=== PATIENT | male | born 1990 | race Caucasian/White ===

== ENCOUNTER 2020-10-30 07:25 | Day surgery (SDC) | payer BC ==
[~2020-10-30 07:25] MED LIST: Lidocaine 2% 5 ML SDV ONE; Midazolam 1 MG/ML 2 ML SDV ONE; Propofol 200 MG/20 ML SDV ONE; fentaNYL 100 MCG/2 ML SDV ONE
--- NOTE | 2020-10-30 07:59 | PCM.PREANE ---
Preanesthetic Assessment - Anesthesia/Transfusion/Family Hx Anesthesia History: Prior Anesthesia Without Reaction Family History of Anesthesia Reaction: No Transfusion History: No Prior Transfusion(s) Intubation History: Unknown - Review of Systems General: No Symptoms Pulmonary: No Symptoms Cardiovascular: No Symptoms Gastrointestinal: No Symptoms Neurological: No Symptoms Other: Reports: None - Physical Assessment Height: 6 ft 2 in Weight: 66.678 kg ASA Class: 2 Mental Status: Alert & Oriented x3 Airway Class: Mallampati = 2 Dentition: Reports: Normal Dentition Thyro-Mental Finger Breadths: 3 Mouth Opening Finger Breadths: 2 (small mouth) ROM/Head Extension: Full Lungs: Clear to Auscultation, Normal Respiratory Effort Cardiovascular: Regular Rate, Regular Rhythm - Allergies Allergies/Adverse Reactions: Allergies Allergy/AdvReac Type Severity Reaction Status Date / Time Penicillins Allergy Cannot Verified 10/26/20 08:26 Remember - Blood Blood Available: No - Anesthesia Plan Pre-Op Medication Ordered: None - Acknowledgements Anesthesia Type Planned: MAC Pt an Appropriate Candidate for the Planned Anesthesia: Yes Alternatives and Risks of Anesthesia Discussed w Pt/Guardian: Yes Pt/Guardian Understands and Agrees with Anesthesia Plan: Yes PreAnesthesia Questionnaire HEENT History: Reports: None Cardiovascular History: Reports: None Respiratory History: Reports: None Gastrointestinal History: Reports: GERD Other Gastrointestinal History: intermittent RUQ pain Genitourinary History: Reports: None Musculoskeletal History: Reports: Back Pain, Chronic Neurological History: Reports: Migraines Psychiatric History: Reports: None Endocrine/Metabolic History: Reports: None Hematologic History: Reports: None Immunologic History: Reports: None Oncologic (Cancer) History: Reports: None Dermatologic History: Reports: None - Past Surgical History Head Surgeries/Procedures: Reports: None HEENT Surgical History: Reports: Tonsillectomy Cardiovascular Surgical History: Reports: None Respiratory Surgical History: Reports: None GI Surgical History: Reports: Colonoscopy, EGD Male Surgical History: Reports: None Endocrine Surgical History: Reports: None Neurological Surgical History: Reports: None Musculoskeletal Surgical History: Reports: None Oncologic Surgical History: Reports: None Dermatological Surgical History: Reports: None - SUBSTANCE USE Tobacco Use Status *Q: Current Every Day Tobacco User (1/2 ppd) Tobacco Use Within Last Twelve Months: Cigarettes - HOME MEDS Home Medications: Home Meds Omeprazole Magnesium [Prilosec Otc] 1 tab PO DAILY PRN 10/26/20 [History] Vitamin B Complex 1 tab PO DAILY 10/26/20 [History] - CURRENT (IN HOUSE) MEDS Current Meds: Current Medications Lactated Ringer's (Ringers, Lactated) 1,000 mls @ 125 mls/hr IV ASDIRECTED [facility] Discontinued Medications Fentanyl (Sublimaze) Confirm Administered Dose 100 mcg .ROUTE .STK-MED ONE Stop: 10/30/20 07:09 Lidocaine (Xylocaine-Mpf 2%) Confirm Administered Dose 5 ml .ROUTE .STK-MED ONE Stop: 10/30/20 07:08 Midazolam HCl (Versed 1 Mg/Ml) Confirm Administered Dose 2 mg .ROUTE .STK-MED ONE Stop: 10/30/20 07:09 Propofol (Diprivan 20 Ml) Confirm Administered Dose 200 mg .ROUTE .STK-MED ONE Stop: 10/30/20 07:09
[2020-10-30] MEDS ORDERED: Lactated Ringers 1,000 ML IV SCH ×2 (08:00→09:15)
--- NOTE | 2020-10-30 09:17 | PCM.OPNOTE ---
- General Post-Op/Procedure Note Date of Surgery/Procedure: 10/30/20 Operative Procedure(s): Esophagogastroduodenoscopy with antral biopsies Pre Op Diagnosis: Persistent epigastric pain. Post-Op Diagnosis: Mild to moderate chronic gastritis without ulceration. Anesthesia Technique: MAC (ASA II) Primary Surgeon: Campos Barber Condition: Good Free Text/Narrative:: DICTATION [id number] CPT CODE 45144
--- NOTE | 2020-10-30 09:46 | PCM.POSTAN ---
POST ANESTHESIA ASSESSMENT - MENTAL STATUS Mental Status: Alert, Oriented - VITAL SIGNS Vital Signs: Last Vital Signs Temp 36.2 C 10/30/20 07:32 Pulse 69 10/30/20 09:29 Resp 12 10/30/20 09:29 BP 102/62 10/30/20 09:29 Pulse Ox 95 10/30/20 09:29 - RESPIRATORY Respiratory Status: Respiratory Rate WNL, Airway Patent, O2 Saturation Stable - CARDIOVASCULAR CV Status: Pulse Rate WNL, Blood Pressure Stable - GASTROINTESTINAL GI Status: No Symptoms - PAIN Pain Score: 0 - POST OP HYDRATION Hydration Status: Adequate & Stable - OBSERVATIONS Free Text/Narrative:: No anesthesia problems
--- NOTE | 2020-10-30 09:47 | PCM48HPAN ---
Post Anesthesia Note - EVALUATION WITHIN 48HRS OF ANESTHETIC Vital Signs in Normal Range: Yes Patient Participated in Evaluation: Yes Respiratory Function Stable: Yes Airway Patent: Yes Cardiovascular Function Stable: Yes Hydration Status Stable: Yes Pain Control Satisfactory: Yes Nausea and Vomiting Control Satisfactory: Yes Mental Status Recovered: Yes Vital Signs: Last Vital Signs Temp 36.2 C 10/30/20 07:32 Pulse 69 10/30/20 09:29 Resp 12 10/30/20 09:29 BP 102/62 10/30/20 09:29 Pulse Ox 95 10/30/20 09:29 - COMMENTS/OBSERVATIONS Free Text/Narrative:: No anesthesia problems
--- NOTE | 2020-10-30 11:16 | OR ---
SURGEON: Campos Barber M.D. DATE OF PROCEDURE: 10/30/2020 OPERATION PERFORMED: Esophagogastroduodenoscopy with gastric biopsy. PRIMARY SURGEON: Campos Barber MD ANESTHESIA: MAC. ASA CLASSIFICATION: II. PREOPERATIVE DIAGNOSIS: Persistent epigastric pain. POSTOPERATIVE DIAGNOSIS: Moderate chronic gastritis without ulceration. DESCRIPTION OF PROCEDURE: The patient was taken to the endoscopy room and positioned on the endoscopy table in the supine position. Time-out was called for appropriate identification of patient and procedure. Monitored anesthesia care was provided. The bite block was placed between the patient's teeth. The gastroscope was inserted through the bite block into the oropharynx and advanced without difficulty through the esophagus and stomach into the duodenum where examination was now carried out in a retrograde fashion. The duodenum showed no acute inflammatory changes or ulcerations. The stomach did show mild-to- moderate chronic gastritis. No acute ulcerations were noted. Antral biopsies were obtained to look for the presence of Helicobacter pylori. The gastroscope was then retroflexed to visualize the proximal stomach. No ulcerations were noted proximally. No tumors or polyps were seen and there was no hiatal hernia noted. The gastroscope was then straightened and slowly withdrawn, carefully visualizing the greater and lesser curvatures. Again, no ulcerations, tumors, or polyps were identified. The GE junction was well defined and showed no acute inflammatory changes or ulcerations. The esophagus demonstrated good contractility. No mid or proximal lesions were identified. The vocal cords were visualized as the scope was withdrawn and noted to move symmetrically. The gastroscope was then removed with the patient having tolerated the procedure well. He was taken to recovery room in stable condition. MEIR / ANDREW /[id number]
== END 2020-10-30 09:44 | disposition home or self-care (01) ==
LOC: MW.SDS 07:25
PROVIDERS: ATTEND Surgery
DX: K29.50 Unspecified chronic gastritis without bleeding (principal); K25.9 Gastric ulcer, unspecified as acute or chronic, without hemorrhage or perforation; G43.909 Migraine, unspecified, not intractable, without status migrainosus; F17.210 Nicotine dependence, cigarettes, uncomplicated; Z88.0 Allergy status to penicillin; Z98.890 Other specified postprocedural states
CPT/HCPCS: 43239; J2001; J2250; J2704; J3010; J7120

== ENCOUNTER 2021-02-15 06:52 | Day surgery (SDC) | payer BC ==
[~2021-02-15 06:52] MED LIST changes: +Lactated Ringers 1,000 ML IV SCH; -Lidocaine 2% 5 ML SDV ONE; -Midazolam 1 MG/ML 2 ML SDV ONE; -Propofol 200 MG/20 ML SDV ONE; -fentaNYL 100 MCG/2 ML SDV ONE
[2021-02-15] MEDS ORDERED: Propofol 200 MG/20 ML SDV ONE (07:13)
[2021-02-15] MEDS ORDERED: Midazolam 1 MG/ML 2 ML SDV ONE (07:14)
--- NOTE | 2021-02-15 07:36 | PCM.PREANE ---
Preanesthetic Assessment - Anesthesia/Transfusion/Family Hx Anesthesia History: Prior Anesthesia Without Reaction Family History of Anesthesia Reaction: No Transfusion History: No Prior Transfusion(s) Intubation History: Unknown - Review of Systems General: No Symptoms Pulmonary: No Symptoms Cardiovascular: No Symptoms Gastrointestinal: No Symptoms Neurological: No Symptoms Other: Reports: None - Physical Assessment NPO Status Date: 02/15/21 NPO Status Time: 00:05 Vital Signs: Last Vital Signs Temp 97.2 F 02/15/21 07:05 Pulse 84 02/15/21 07:05 Resp 14 02/15/21 07:05 BP 109/79 02/15/21 07:05 Pulse Ox 100 02/15/21 07:05 Height: 6 ft 2 in Weight: 134 lb ASA Class: 2 Mental Status: Alert & Oriented x3 Airway Class: Mallampati = 2 Dentition: Reports: Normal Dentition ROM/Head Extension: Full Lungs: Clear to Auscultation, Normal Respiratory Effort Cardiovascular: Regular Rate, Regular Rhythm - Allergies Allergies/Adverse Reactions: Allergies Allergy/AdvReac Type Severity Reaction Status Date / Time Penicillins Allergy Cannot Verified 02/15/21 07:24 Remember - Anesthesia Plan Pre-Op Medication Ordered: None - Acknowledgements Anesthesia Type Planned: General Anesthesia Pt an Appropriate Candidate for the Planned Anesthesia: Yes Alternatives and Risks of Anesthesia Discussed w Pt/Guardian: Yes Pt/Guardian Understands and Agrees with Anesthesia Plan: Yes Additional Comments: npo bowel prep hx depression anxiety clancy tob 1/2 ppd etoh rare diarrhea and wt loss for 4 weeks par no questions PreAnesthesia Questionnaire HEENT History: Reports: Other (See Below) Other HEENT History: wears glasses Cardiovascular History: Reports: Other (See Below) Other Cardiovascular History: takes Propranolol for daily migraines Respiratory History: Reports: None Gastrointestinal History: Reports: GERD Other Gastrointestinal History: recent weight loss Genitourinary History: Reports: None Musculoskeletal History: Reports: Back Pain, Chronic Neurological History: Reports: Migraines Psychiatric History: Reports: Depression Endocrine/Metabolic History: Reports: None Hematologic History: Reports: None Immunologic History: Reports: None Oncologic (Cancer) History: Reports: None Dermatologic History: Reports: None - Past Surgical History Head Surgeries/Procedures: Reports: None HEENT Surgical History: Reports: Tonsillectomy Cardiovascular Surgical History: Reports: None Respiratory Surgical History: Reports: None GI Surgical History: Reports: Colonoscopy, EGD Male Surgical History: Reports: None Endocrine Surgical History: Reports: None Neurological Surgical History: Reports: None Musculoskeletal Surgical History: Reports: None Oncologic Surgical History: Reports: None Dermatological Surgical History: Reports: None - SUBSTANCE USE Tobacco Use Status *Q: Current Every Day Tobacco User Tobacco Use Within Last Twelve Months: Cigarettes Recreational Drug Use History: No - HOME MEDS Home Medications: Home Meds ALPRAZolam [Xanax] 0.5 mg PO BID 02/12/21 [History] FLUoxetine HCl [Fluoxetine HCl] 20 mg PO DAILY 02/12/21 [History] Propranolol [Inderal LA] 80 mg PO QAM 02/12/21 [History] SUMAtriptan succinate [Imitrex] 100 mg PO DAILY 02/12/21 [History] buPROPion HCL [Bupropion Xl] 300 mg PO DAILY 02/12/21 [History] - CURRENT (IN HOUSE) MEDS Current Meds: Current Medications Lactated Ringer's (Ringers, Lactated) 1,000 mls @ 125 mls/hr IV [facility]RECTED [facility] Last Admin: 02/15/21 07:24 Dose: 125 mls/hr Documented by: Discontinued Medications Midazolam HCl (Midazolam 1 Mg/Ml 2 Ml Sdv) Confirm Administered Dose 2 mg .ROUTE .STK-MED ONE Stop: 02/15/21 07:15 Propofol (Propofol 200 Mg/20 Ml Sdv) Confirm Administered Dose 600 mg .ROUTE .STK-MED ONE Stop: 02/15/21 07:14
--- NOTE | 2021-02-15 09:43 | PCM.OPNOTE ---
- General Post-Op/Procedure Note Date of Surgery/Procedure: 02/15/21 Operative Procedure(s): Colonoscopy with cecal, transverse colon, descending colon and rectal biopsies. Pre Op Diagnosis: Chronic noninfectious diarrhea. Unexplained weight loss. Post-Op Diagnosis: No acute inflammatory lesions. R/O microscopic colitis. Anesthesia Technique: MAC (ASA III) Primary Surgeon: Campos Barber Catering Cook: Kenyatta Metcalf Condition: Good Free Text/Narrative:: DICTATION [id number] CPT CODE 83627
[2021-02-15] MEDS ORDERED: Lactated Ringers 1,000 ML IV SCH (09:45)
--- NOTE | 2021-02-15 10:04 | PCM.POSTAN ---
POST ANESTHESIA ASSESSMENT - MENTAL STATUS Mental Status: Alert, Oriented - VITAL SIGNS Vital Signs: Last Vital Signs Temp 97.2 F 02/15/21 07:05 Pulse 59 L 02/15/21 09:58 Resp 13 02/15/21 09:58 BP 110/71 02/15/21 09:58 Pulse Ox 100 02/15/21 09:58 - RESPIRATORY Respiratory Status: Respiratory Rate WNL, Airway Patent, O2 Saturation Stable - CARDIOVASCULAR CV Status: Pulse Rate WNL, Blood Pressure Stable - GASTROINTESTINAL GI Status: No Symptoms - POST OP HYDRATION Hydration Status: Adequate & Stable
--- NOTE | 2021-02-15 10:47 | PCM48HPAN ---
Post Anesthesia Note - EVALUATION WITHIN 48HRS OF ANESTHETIC Vital Signs in Normal Range: Yes Patient Participated in Evaluation: Yes Respiratory Function Stable: Yes Airway Patent: Yes Cardiovascular Function Stable: Yes Hydration Status Stable: Yes Pain Control Satisfactory: Yes Nausea and Vomiting Control Satisfactory: Yes Mental Status Recovered: Yes Vital Signs: Last Vital Signs Temp 36.2 C 02/15/21 10:05 Pulse 64 02/15/21 10:05 Resp 14 02/15/21 10:05 BP 103/73 02/15/21 10:05 Pulse Ox 99 02/15/21 10:05
--- NOTE | 2021-02-15 11:01 | OR ---
SURGEON: Campos Barber M.D. DATE OF PROCEDURE: 02/15/2021 OPERATION PERFORMED: Colonoscopy with biopsies of the cecum, transverse colon, descending colon, and rectum. [employer] COACH: psychiatric assistant: VERNA Brower student. ANESTHESIA: MAC. ASA CLASSIFICATION: II. PREOPERATIVE DIAGNOSES: Chronic noninfectious diarrhea with unexplained weight loss. POSTOPERATIVE DIAGNOSES: No acute ulcerative colitis. Cannot rule out microscopic colitis until biopsies are returned. DESCRIPTION OF PROCEDURE: The patient was taken to the endoscopy room and positioned on the endoscopy table in the left lateral decubitus position. Time-out was called for appropriate identification of the patient and procedure. Monitored anesthesia care was provided. The colonoscope was inserted into the rectum and advanced with moderate difficulty to the cecum. The cecum was identified by internal landmarks and external pressure. The colonoscope was retroflexed to visualize the ascending colon from below, then straightened, and slowly withdrawn. Random biopsies were obtained as the scope was withdrawn. The first biopsies were obtained from the cecum. The ascending colon and hepatic flexure did not show any acute inflammatory changes. Again, random biopsies were obtained from the proximal transverse colon, from the descending colon, and from the rectum. There were no acute inflammatory changes noted anywhere all along the entire length of the colon. No ulcers were seen. There was no evidence of angiodysplasia. No diverticular changes were noted. The colon itself demonstrated good contractility. The colonoscope was carefully withdrawn through the remainder of the transverse colon, descending and sigmoid colon, and rectum. When the colonoscope was withdrawn to the rectum, again no acute inflammatory changes were noted. Random biopsies were obtained to rule out a nonspecific proctitis. The colonoscope was retroflexed to visualize the anal orifice from above. No acute hemorrhoidal changes were noted. No ulcerations or fissures were noted. The colonoscope was then straightened, the rectum aspirated, and the colonoscope removed. The patient tolerated the procedure well and was taken to recovery room in stable condition. MEIR / ANDREW /[id number] PILY
== END 2021-02-15 10:21 | disposition home or self-care (01) ==
LOC: MW.SDS 06:52
PROVIDERS: ATTEND Surgery
DX: K52.9 Noninfective gastroenteritis and colitis, unspecified (principal); R63.4 Abnormal weight loss; F17.210 Nicotine dependence, cigarettes, uncomplicated; Z88.0 Allergy status to penicillin; Z79.899 Other long term (current) drug therapy; Z98.890 Other specified postprocedural states; Z83.79 Family history of other diseases of the digestive system
CPT/HCPCS: 45380; 88305; J2250; J2704; J7120; 00811

== ENCOUNTER 2021-10-11 07:25 | Day surgery (SDC) | payer BC ==
[2021-10-11] MEDS ORDERED: HYDROmorphone 1 MG/ML Syringe IVPUSH PRN (08:28)
[2021-10-11] MEDS ORDERED: Albuterol 0.083% 2.5 MG/3 ML Neb Soln NEB PRN (08:28)
[2021-10-11] MEDS ORDERED: fentaNYL 100 MCG/2 ML SDV IVPUSH PRN (08:28)
[2021-10-11] MEDS ORDERED: Metoclopramide 10 MG/2 ML SDV IVPUSH PRN (08:28)
[2021-10-11] MEDS ORDERED: Naloxone 0.4 MG/ML SDV IVPUSH PRN (08:28)
[2021-10-11] MEDS ORDERED: Ondansetron 4 MG/2 ML SDV IVPUSH PRN (08:28)
[2021-10-11] MEDS ORDERED: fentaNYL 100 MCG/2 ML SDV ONE (08:35)
[2021-10-11] MEDS ORDERED: Propofol 200 MG/20 ML SDV ONE (08:35)
[2021-10-11] MEDS ORDERED: Midazolam 1 MG/ML 2 ML SDV ONE (08:36)
[2021-10-11] MEDS ORDERED: Ondansetron 4 MG/2 ML SDV ONE (08:37)
[2021-10-11] MEDS ORDERED: Ketorolac 30 MG/ML SDV ONE (08:37)
[2021-10-11] MEDS ORDERED: Glycopyrrolate 0.2 MG/ML SDV ONE (08:37)
[2021-10-11] MEDS ORDERED: Lidocaine 2% 5 ML SDV ONE (08:37)
--- NOTE | 2021-10-11 08:39 | PCM.PREANE ---
Preanesthetic Assessment - Procedure Proposed Procedure: Excision of Left Breast Mass - Anesthesia/Transfusion/Family Hx Anesthesia History: Prior Anesthesia Without Reaction Family History of Anesthesia Reaction: No Transfusion History: No Prior Transfusion(s) Intubation History: Unknown - Review of Systems General: No Symptoms Pulmonary: No Symptoms (smokes 1/2 PPD down from 2 PPD) Cardiovascular: No Symptoms Gastrointestinal: No Symptoms (GERD well controlled) Neurological: No Symptoms Other: Reports: None - Physical Assessment NPO Status Date: 10/10/21 NPO Status Time: 18:30 Vital Signs: Last Vital Signs Temp 97.2 F 10/11/21 08:18 Pulse 88 10/11/21 08:18 Resp 14 10/11/21 08:18 BP 123/77 10/11/21 08:18 Pulse Ox 100 10/11/21 08:18 Height: 6 ft 1 in Weight: 73.028 kg ASA Class: 2 Mental Status: Alert & Oriented x3 Airway Class: Mallampati = 2 Dentition: Reports: Normal Dentition Thyro-Mental Finger Breadths: 3 Mouth Opening Finger Breadths: 3 ROM/Head Extension: Full Lungs: Clear to Auscultation, Normal Respiratory Effort Cardiovascular: Regular Rate, Regular Rhythm - Lab Values: Laboratory Last Values SARS-CoV-2 RNA (TAHIRA) NEGATIVE (NEGATIVE) 10/11/21 07:20 - Allergies Allergies/Adverse Reactions: Allergies Allergy/AdvReac Type Severity Reaction Status Date / Time Latex, Natural Rubber Allergy Blisters Verified 10/05/21 11:04 Penicillins Allergy Cannot Verified 10/05/21 11:04 Remember - Acknowledgements Anesthesia Type Planned: General Anesthesia Pt an Appropriate Candidate for the Planned Anesthesia: Yes Alternatives and Risks of Anesthesia Discussed w Pt/Guardian: Yes Pt/Guardian Understands and Agrees with Anesthesia Plan: Yes PreAnesthesia Questionnaire HEENT History: Reports: Other (See Below) Other HEENT History: wears glasses Cardiovascular History: Reports: Other (See Below) Other Cardiovascular History: takes Propranolol for daily migraines Respiratory History: Reports: None Gastrointestinal History: Reports: GERD Other Gastrointestinal History: recent weight loss Genitourinary History: Reports: None Musculoskeletal History: Reports: Back Pain, Chronic Neurological History: Reports: Migraines Psychiatric History: Reports: Depression Endocrine/Metabolic History: Reports: None Hematologic History: Reports: None Immunologic History: Reports: None Oncologic (Cancer) History: Reports: None Dermatologic History: Reports: None - Past Surgical History Head Surgeries/Procedures: Reports: None HEENT Surgical History: Reports: Tonsillectomy Cardiovascular Surgical History: Reports: None Respiratory Surgical History: Reports: None GI Surgical History: Reports: Colonoscopy, EGD Male Surgical History: Reports: None Endocrine Surgical History: Reports: None Neurological Surgical History: Reports: None Musculoskeletal Surgical History: Reports: None Oncologic Surgical History: Reports: None Dermatological Surgical History: Reports: None - SUBSTANCE USE Tobacco Use Status *Q: Current Every Day Tobacco User Tobacco Use Within Last Twelve Months: Cigarettes Recreational Drug Use History: No - HOME MEDS Home Medications: Home Meds ALPRAZolam [Xanax] 0.5 mg PO ASDIRECTED PRN 02/12/21 [History] FLUoxetine HCl [Fluoxetine HCl] 20 mg PO DAILY 02/12/21 [History] Propranolol [Inderal LA] 80 mg PO QAM 02/12/21 [History] SUMAtriptan succinate [Imitrex] 100 mg PO DAILY 02/12/21 [History] buPROPion HCL [Bupropion Xl] 300 mg PO DAILY 02/12/21 [History] - CURRENT (IN HOUSE) MEDS Current Meds: Current Medications Lactated Ringer's (Ringers, Lactated) 1,000 mls @ 125 mls/hr IV ASDIRECTED [facility] Last Admin: 10/11/21 08:23 Dose: 125 mls/hr Documented by:
[2021-10-11] MEDS ORDERED: Bupivacaine 0.5% 30 ML SDV ONE (09:19)
[2021-10-11] MEDS ORDERED: Metoclopramide 10 MG/2 ML SDV ONE (09:46)
--- NOTE | 2021-10-11 10:25 | PCM.POSTAN ---
POST ANESTHESIA ASSESSMENT - MENTAL STATUS Mental Status: Alert, Oriented - VITAL SIGNS Vital Signs: Last Vital Signs Temp 97.2 F 10/11/21 08:18 Pulse 88 10/11/21 08:18 Resp 14 10/11/21 08:18 BP 123/77 10/11/21 08:18 Pulse Ox 100 10/11/21 08:18 - RESPIRATORY Respiratory Status: Respiratory Rate WNL, Airway Patent, O2 Saturation Stable - CARDIOVASCULAR CV Status: Pulse Rate WNL, Blood Pressure Stable - GASTROINTESTINAL GI Status: No Symptoms - PAIN Pain Score: 0 - POST OP HYDRATION Hydration Status: Adequate & Stable
[2021-10-11] MEDS ORDERED: Acetaminophen/HYDROcodone 325-5 MG Tab PO PRN (10:27)
--- NOTE | 2021-10-11 10:29 | PCM.OPNOTE ---
- General Post-Op/Procedure Note Date of Surgery/Procedure: 10/11/21 Operative Procedure(s): Excision enlarging left breast mass Pre Op Diagnosis: Enlarging left breast mass Post-Op Diagnosis: Same Anesthesia Technique: General LMA (ASA II) Primary Surgeon: Campos Barber Fluid Replacement, Intraop: 600 EBL in mLs: 10 Condition: Good Free Text/Narrative:: DICTATION [id number] CPT CODE 71501
[2021-10-11] MEDS ORDERED: Lactated Ringers 1,000 ML IV SCH (10:30)
--- NOTE | 2021-10-11 10:35 | PCM48HPAN ---
Post Anesthesia Note - EVALUATION WITHIN 48HRS OF ANESTHETIC Vital Signs in Normal Range: Yes Patient Participated in Evaluation: Yes Respiratory Function Stable: Yes Airway Patent: Yes Cardiovascular Function Stable: Yes Hydration Status Stable: Yes Pain Control Satisfactory: Yes Nausea and Vomiting Control Satisfactory: Yes Mental Status Recovered: Yes Vital Signs: Last Vital Signs Temp 98.2 F 10/11/21 10:21 Pulse 78 10/11/21 10:27 Resp 20 10/11/21 10:27 BP 115/71 10/11/21 10:27 Pulse Ox 99 10/11/21 10:27 - COMMENTS/OBSERVATIONS Free Text/Narrative:: Pt doing well post-op. VSS. No apparent anesthetic complications. Dr. Matthew Carmona
--- NOTE | 2021-10-11 17:35 | OR ---
SURGEON: Campos Barber M.D. DATE OF PROCEDURE: 10/11/2021 PROCEDURE: Excision, left breast mass. ANESTHESIA: General LMA. ASA CLASSIFICATION: 2. PREOPERATIVE DIAGNOSIS: Enlarging left breast mass. POSTOPERATIVE DIAGNOSIS: Enlarging left breast mass. ESTIMATED BLOOD LOSS: 10 mL. FLUID REPLACEMENT: 600 mL of crystalloid. DESCRIPTION OF PROCEDURE: The patient was taken to the operating room and placed on the operating table in the supine position. Time-out was called for appropriate identification of the patient and procedure. Surgical site had been marked prior to the patient entering the operating room. Thigh-high TEDs and sequential compression boots were placed. Following satisfactory attainment of general anesthesia with placement of an LMA, the chest was prepped with DuraPrep solution and sterile drapes were applied. A curvilinear incision was marked out extending from the 9 o'clock to 3 o'clock position superiorly on the left breast. The skin was then infiltrated with 0.5% Marcaine solution. Curvilinear incision was made at the areolar cutaneous interface. Dissection was carried into the subcutaneous tissue obtaining hemostasis with the use of electrocautery. The mass was palpable and using electrocautery, the mass was removed in its entirety. Small bleeding sites were electrocoagulated. The wound was then irrigated and inspected for hemostasis, no other bleeding was noted. The incision was then closed in two layers approximating the subcutaneous tissue with interrupted 3-0 Vicryl. The skin edges were reapproximated with subcuticular 4-0 Monocryl reinforced with 1/2-inch Steri-Strips with care taken to keep the tape off the nipple itself. The wound was then dressed with a sterile Tegaderm pad. Sponge, needle, and instrument counts were all correct. Following emergence from anesthesia and extubation, the patient was taken to recovery room in stable condition. MEIR / ANDREW /[id number]
== END 2021-10-11 11:53 | disposition home or self-care (01) ==
LOC: MW.SDS 07:25
PROVIDERS: ATTEND Surgery
DX: N62 Hypertrophy of breast (principal); F17.210 Nicotine dependence, cigarettes, uncomplicated; K21.9 Gastro-esophageal reflux disease without esophagitis; G43.909 Migraine, unspecified, not intractable, without status migrainosus; Z01.812 Encounter for preprocedural laboratory examination; Z20.822 Contact with and (suspected) exposure to COVID-19; Z88.0 Allergy status to penicillin; Z79.899 Other long term (current) drug therapy; Z98.890 Other specified postprocedural states; Z91.040 Latex allergy status
CPT/HCPCS: 19120; 87635; J1885; J2250; J2405; J2704; J2765; J3010; J3490; J7120; 00400; U0002